=== PATIENT | male | born 1980 | race Caucasian/White ===

== ENCOUNTER 2019-11-24 17:00 | Emergency (ER) | payer SELFPAY ==
[2019-11-24] MEDS ORDERED: KETOROLAC 30 MG/ML INJ ONE (18:12)
--- NOTE | 2019-11-24 18:39 | EDPHYS ---
Physician Documentation [facility] Name: Elías Haq Age: 39 yrs Sex: Male : 1980 Arrival Date: 11/24/2019 Time: 17:03 Bed 24 Private MD: ED Physician Joey Pal HPI: 11/24 17:50 This 39 yrs old Male presents to ER via Ambulatory with complaints of Chest cp Pain From Injury. 17:50 The patient or guardian reports chest pain that is located primarily in the anterior cp aspect of right upper chest. Onset: The symptoms/episode began/occurred couple day days ago. The pain does not radiate. Associated signs and symptoms: Pertinent negatives: cough, diaphoresis, lower extremity pain, lower extremity swelling, recent travel, shortness of breath, syncope. Modifying factors: the symptoms are aggravated by moving and lifting right arm, pressing on right side of chest. 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 Patient reports pain became worse yesterday after working on shed. Denies direct trauma to area. Historical: - Allergies: 17:27 No Known Allergies; aa5 - PMHx: 17:27 None; aa5 - PSHx: 17:27 None; aa5 - Immunization history:: Flu vaccine is not up to date. - Coronavirus screen:: The patient has NOT traveled to [place], [place], or [place] in the past 14 days. The patient has NOT had contact with known/suspected case of Coronavirus?. - Social history:: Smoking status: Patient denies any tobacco usage or history of. - Ebola Screening: : No symptoms or risks identified at this time. ROS: 17:55 Cardiovascular: Positive for chest pain, of the anterior aspect of right upper chest, cp Negative for edema, palpitations. 17:55 Eyes: Negative for injury, pain, redness, and discharge. cp 17:55 Constitutional: Negative for chills, fever, poor PO intake. 17:55 ENT: Negative for drainage from ear(s), ear pain, sore throat, difficulty swallowing, difficulty handling secretions. 17:55 Neck: Negative for pain with movement, pain at rest, stiffness. 17:55 Respiratory: Negative for cough, shortness of breath, wheezing. 17:55 Abdomen/GI: Negative for abdominal pain, vomiting, diarrhea, constipation. 17:55 Back: Negative for radiated pain. 17:55 Neuro: Negative for headache, syncope, weakness. 17:55 All other systems are negative. Exam: 18:00 Constitutional: The patient appears in no acute distress, alert, awake, cp non-diaphoretic, non-toxic, well developed, well nourished. 18:00 Head/Face: Normocephalic, atraumatic. cp 18:00 Eyes: Periorbital structures: appear normal, Conjunctiva: normal, no exudate, no injection, Sclera: no appreciated abnormality, Lids and lashes: appear normal, bilaterally. 18:00 ENT: External ear(s): are unremarkable, Nose: is normal, Mouth: Lips: moist, Oral mucosa: pink and intact, moist, Posterior pharynx: is normal, airway is patent, no erythema, no exudate. 18:00 Chest/axilla: Inspection: normal, Palpation: crepitus, is not appreciated, tenderness, that is moderate, of the anterior aspect of right upper chest. 18:00 Cardiovascular: Rate: normal, Rhythm: regular, Heart sounds: murmur, not appreciated, Edema: is not appreciated, JVD: is not appreciated. 18:00 Respiratory: the patient does not display signs of respiratory distress, Respirations: cp normal, no use of accessory muscles, no retractions, no splinting, no tachypnea, labored breathing, is not present, Breath sounds: are clear throughout, no decreased breath sounds, no stridor, no wheezing. 18:00 Abdomen/GI: Inspection: abdomen appears normal, Palpation: abdomen is soft and non-tender, in all quadrants. 18:00 Back: pain, is absent, ROM is normal. 18:00 Skin: cellulitis, is not appreciated, no rash present. 18:00 Neuro: Orientation: to person, place \\T\\ time. Mentation: is normal, Motor: moves all fours, strength is normal. Vital Signs: 17:28 BP 138 / 99; Pulse 76; Resp 16 S; Temp 97.5(TE); Pulse Ox 100% on R/A; Weight 90.72 kg aa5 (R); Height 6 ft. 2 in. (187.96 cm) (R); Pain 4/10; 17:28 Body Mass Index 25.68 (90.72 kg, 187.96 cm) aa5 MDM: 17:42 Patient medically screened. cp 18:00 Differential diagnosis: Chest Wall Injury Pneumothorax Rib Fracture. cp 18:37 Data reviewed: vital signs, nurses notes, radiologic studies, plain films. cp 18:37 Test interpretation: by ED physician or midlevel provider: plain radiologic studies, cp chest xray negative for infiltrates or rib fractures. Counseling: I had a detailed discussion with the patient and/or guardian regarding: the historical points, exam findings, and any diagnostic results supporting the discharge/admit diagnosis, radiology results, to return to the emergency department if symptoms worsen or persist or if there are any questions or concerns that arise at home. 11/24 17:47 Order name: XRAY Chest Pa And Lat (2 Views); Complete Time: 19:07 cp 11/24 19:07 Interpretation: Report reviewed. cp Administered Medications: 18:10 Drug: TORadol 60 mg Route: IM; Site: left deltoid; ls4 18:40 Follow up: Response: No adverse reaction; Marked relief of symptoms; Pain is decreased ls4 Disposition: 11/25 02:46 Co-signature as Attending Physician, Joey Pal MD I agree with the assessment and kdr plan of care. Disposition: 11/24/19 18:38 Discharged to Home. Impression: Other chest pain. - Condition is Stable. - Discharge Instructions: Chest Wall Pain. - Prescriptions for Diclofenac Sodium 75 mg Oral Tablet, Delayed Release (E.C.) - take 1 tablet by ORAL route 2 times per day; 20 tablet. - Medication Reconciliation Form, Thank You Letter, Antibiotic Education, Prescription Opioid Use, Work release form form. - Follow up: Private Physician; When: 2 - 3 days; Reason: Worsening of condition. - Problem is new. - Symptoms have improved. Signatures: Dispatcher [employer] EDMS Joey Pal MD MD [facility] Melyssa Matthwe RN RN aa5 Pineda Cherry PA PA cp Molly Shin, RN RN ls4 Corrections: (The following items were deleted from the chart) 11/24 19:09 18:38 11/24/2019 18:38 Discharged to Home. Impression: Other chest pain. Condition is ls4 Stable. Forms are Medication Reconciliation Form, Thank You Letter, Antibiotic Education, Prescription Opioid Use. Follow up: Private Physician; When: 2 - 3 days; Reason: Worsening of condition. Problem is new. Symptoms have improved. cp
--- NOTE | 2019-11-24 18:39 | ER ---
Nurse's Notes [facility] Name: Elías Haq Age: 39 yrs Sex: Male : 1980 Arrival Date: 11/24/2019 Time: 17:03 Bed 24 Private MD: Diagnosis: Other chest pain Presentation: 11/24 17:26 Presenting complaint: Patient states: "I was in the car with my kids and one of them aa5 threw a cup so as I bent over to grab the cup and I heard a pop on the right side of my chest". Transition of care: patient was not received from another setting of care. Onset of symptoms was November 24, 2019. Risk Assessment: Do you want to hurt yourself or someone else? Patient reports no desire to harm self or others. Initial Sepsis Screen: Does the patient meet any 2 criteria? No. Patient's initial sepsis screen is negative. Does the patient have a suspected source of infection? No. Patient's initial sepsis screen is negative. Care prior to arrival: None. 17:26 Acuity: ESTRELLITA 4 aa5 17:26 Method Of Arrival: Ambulatory aa5 Triage Assessment: 17:33 General: Appears in no apparent distress. Behavior is calm, cooperative. ls4 Historical: - Allergies: 17:27 No Known Allergies; aa5 - PMHx: 17:27 None; aa5 - PSHx: 17:27 None; aa5 - Immunization history:: Flu vaccine is not up to date. - Coronavirus screen:: The patient has NOT traveled to [place], [place], or [place] in the past 14 days. The patient has NOT had contact with known/suspected case of Coronavirus?. - Social history:: Smoking status: Patient denies any tobacco usage or history of. - Ebola Screening: : No symptoms or risks identified at this time. Screenin:32 Abuse screen: Denies threats or abuse. Denies injuries from another. Nutritional ls4 screening: No deficits noted. Tuberculosis screening: No symptoms or risk factors identified. Fall Risk None identified. Assessment: 17:30 Pain: Complains of pain in anterior aspect of right upper chest Pain currently is 5 out ls4 of 10 on a pain scale. 17:30 General: Appears in no apparent distress. Neuro: No deficits noted. Cardiovascular: No ls4 deficits noted. Respiratory: No deficits noted. Derm: No deficits noted. Musculoskeletal: No deficits noted. Vital Signs: 17:28 BP 138 / 99; Pulse 76; Resp 16 S; Temp 97.5(TE); Pulse Ox 100% on R/A; Weight 90.72 kg aa5 (R); Height 6 ft. 2 in. (187.96 cm) (R); Pain 4/10; 17:28 Body Mass Index 25.68 (90.72 kg, 187.96 cm) aa5 ED Course: 17:03 Patient arrived in ED. ag5 17:27 Triage completed. aa5 17:27 Arm band placed on. aa5 17:30 Molly Shin, RN is Primary Nurse. ls4 17:32 Patient has correct armband on for positive identification. Bed in low position. Call ls4 light in reach. Side rails up X2. senior it recruiter on. Pulse ox on. NIBP on. 17:32 No provider procedures requiring assistance completed. ls4 17:34 Pineda Cherry PA is PHCP. cp 17:34 Joey Pal MD is Attending Physician. cp 17:57 XRAY Chest Pa And Lat (2 Views) In Process Unspecified. EDMS 19:40 Patient did not have IV access during this emergency room visit. ls4 Administered Medications: 18:10 Drug: TORadol 60 mg Route: IM; Site: left deltoid; ls4 18:40 Follow up: Response: No adverse reaction; Marked relief of symptoms; Pain is decreased ls4 Outcome: 18:38 Discharge ordered by MD. cp 19:09 Patient left the ED. ls4 23:05 Discharged to home ambulatory. ls4 23:05 Condition: stable 23:05 Discharge instructions given to patient, Instructed on discharge instructions, follow up and referral plans. medication usage, Demonstrated understanding of instructions, follow-up care, medications, Prescriptions given X 1. Signatures: Dispatcher [employer] EDIL Melyssa Matthew RN RN aa5 Pineda Cherry PA PA cp Molly Shin, RN RN ls4 Adrianna Rubin 5
--- NOTE | 2019-11-24 19:01 | RAD REPORT ---
EXAM DESCRIPTION: RAD - Chest Pa And Lat (2 Views) - 11/24/2019 5:59 pm CLINICAL HISTORY: right side chest pain COMPARISON: No comparisons TECHNIQUE: Frontal and lateral views of the chest were obtained. FINDINGS: The lungs are clear. Heart size is normal and central vasculature is within normal limit s. No pleural effusion or pneumothorax seen. No acute bony finding noted. No aortic abnormality. IMPRESSION: No acute cardiopulmonary process. Ongoing concerns for possible rib fracture could be addressed with rib series.
[2019-11-24 19:20] VITALS: BP 138/99; TEMP 97.5; O2SAT 100
== END 2019-11-24 19:09 | disposition home or self-care (01) ==
LOC: ER 17:00
DX: R07.89 Other chest pain (principal)
CPT/HCPCS: 71046; 96372; 99284

== ENCOUNTER 2021-07-12 17:29 | Inpatient (IN) | payer SELFPAY ==
[2021-07-12] MEDS ORDERED: NA CHLORIDE 0.9% 1,000 ML ONE ×2 (18:29→20:00)
[2021-07-12] MEDS ORDERED: NITROGLYCERIN 0.4 MG/TAB SL ONE (18:29)
[2021-07-12] MEDS ORDERED: ASPIRIN 81 MG CHEWABLE TABLET ONE (18:29)
[2021-07-12 18:31] LABS: Absolute Lymphocytes (CBC) 0.7 K/uL (0.7-4.9); Basophils % 0.6 % (0-1.3); Hematocrit 30.5 % (39.6-49.0); MPV 7.7 fL (7.6-11.3); RBC Red Blood Cell Count 3.62 M/uL (4.33-5.43)
[2021-07-12 18:32] LABS: Protime INR 1.1
[2021-07-12 18:49] LABS: ALT/SGPT 53 U/L (12-78); AST/SGOT 63 U/L (15-37); Albumin 4.1 g/dL (3.4-5.0); Alkaline Phosphatase 48 U/L (45-117); BUN Blood Urea Nitrogen 22 mg/dL (7-18); Bicarbonate 28 mmol/L (21-32); Bilirubin Direct 0.2 mg/dL (0-0.2); Bilirubin Total 0.7 mg/dL (0.2-1.0); Glucose Level 92 mg/dL (74-106); Magnesium 2.3 mg/dL (1.8-2.4); NT PRO-BNP 74 pg/mL (<125); Potassium 3.3 mmol/L (3.5-5.1); Protein, Total 7.6 g/dL (6.4-8.2); Sodium Level 139 mmol/L (136-145); Troponin (Emerg Dept Use Only) < 0.02 ng/mL (0.0-0.045)
--- NOTE | 2021-07-12 19:55 | RAD REPORT ---
EXAM DESCRIPTION: RAD - Chest Single View - 07/12/2021 7:18 pm CLINICAL HISTORY: CHEST PAIN COMPARISON: Chest Pa And Lat (2 Views) dated 11/24/2019 FINDINGS: Lines: None. Lungs: New scattered ill-defined opacities in the left lung. Pleural: No significant pleural effusions or pneumothorax. Cardiac: The heart size is within normal limits. Bones: No acute fractures. Other: IMPRESSION: New scattered ill-defined opacities in the left lung could represent pneumonia.
[2021-07-12] MEDS ORDERED: POTASSIUM 25 MEQ EFFERV TAB ONE (20:00)
[2021-07-12 20:01] LABS: White Blood Cell Scan OK (OK)
[2021-07-12 20:02] LABS: Blood Morphology Comment NOTED (NOT SEEN); Ovalocytes SLIGHT; Platelet Estimate ADEQ; Poikilocytosis SLIGHT
[2021-07-12] MEDS ORDERED: KETOROLAC 30 MG/ML INJ ONE (20:04)
[2021-07-12] MEDS ORDERED: PANTOPRAZOLE 40 MG INJ ONE (20:04)
--- NOTE | 2021-07-12 20:41 | ER ---
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 Has sick kids at home with cough/congestion. No known fever. EMS states: 20 G L AC, VSS, normal sinus on monitor. Coronavirus screen: Vaccine status: Patient reports being unvaccinated. Client denies travel out of the [place] in the last 14 days. difficulty breathing, fatigue, Client presents with at least one sign or symptom that may indicate coronavirus-19. Standard/surgical mask placed on the client. Ebola Screen: Patient denies travel to an Ebola-affected area in the 21 days before illness onset. Initial Sepsis Screen: Does the patient meet any 2 criteria? No. Patient's initial sepsis screen is negative. Does the patient have a suspected source of infection? No. Patient's initial sepsis screen is negative. Risk Assessment: Do you want to hurt yourself or someone else? Patient reports no desire to harm self or others. Onset of symptoms was July 12, 2021. 17:46 Method Of Arrival: EMS ll1 17:46 Acuity: ESTRELLITA 3 ll1 20:35 Care prior to arrival: IV initiated. 20 GA, in the left antecubital area. lp1 Historical: - Allergies: 17:41 No Known Allergies; ll1 - PMHx: 17:41 None; ll1 - PSHx: 17:41 None; ll1 - Immunization history:: Client reports having NOT received the Covid vaccine. Flu vaccine is up to date. - Social history:: Smoking status: Patient/guardian denies using tobacco, the patient reports quitting approximately 25 years ago. Screenin:49 Abuse screen: Denies threats or abuse. Nutritional screening: No deficits noted. ll1 Tuberculosis screening: No symptoms or risk factors identified. Fall Risk IV access (20 points). Gait- Weak (10 pts.). Total Duran Fall Scale indicates Low Risk Score (25-44 pts). Fall prevention measures have been instituted. Side Rails Up X 2 Frequent Obs/Assesments occuring As available Patient and Family Educated on Fall Prevention Program and strategies. Assessment: 17:50 General: Appears ill, Behavior is calm, cooperative, appropriate for age. Pain: ll1 Complains of pain in L chest Pain does not radiate. Quality of pain is described as aching, Pain began 1 hour ago. Aggravated by deep breathing. Neuro: Level of Consciousness is awake, alert, obeys commands, Oriented to person, place, time, situation, Appropriate for age [employer] Mission Systems Superintendent are equal bilaterally Moves all extremities. Full function Speech is normal, Facial symmetry appears normal, Reports dizziness, a syncopal episode. Cardiovascular: Reports chest pain, diaphoresis, fatigue, lightheadedness, syncope, Heart tones S1 S2 Capillary refill < 3 seconds Clubbing of nail beds is absent JVD is absent Patient's skin is warm and dry. Chest pain. Respiratory: Airway is patent Trachea midline Respiratory effort is even, unlabored, Respiratory pattern is regular, symmetrical, Breath sounds are clear bilaterally. 20:30 Reassessment: No changes from previously documented assessment. Patient and/or family lp1 updated on plan of care and expected duration. Pain level reassessed. Patient is alert, oriented x 3, equal unlabored respirations, skin warm/dry/pink. Pt resting quietly in bed. No distress noted. Lights off. Warm blanket given. 20:38 Reassessment: pt reports a missing gun and "load of money", called [facility] Andrade and hemal Eller RN to verify if pt had any belongings with him, nurses were unaware of any personal belongings left with him from EMS, I called [facility] verified belongings were left in the back of his SUV, between a cooler and sub woofer and picked up vehicle from the location EMS picked pt up. 22:15 Reassessment: KIMBERLY Macdonald at bedside to discuss plan of care with patient. lp1 23:23 Reassessment: Attempted report to 205. RN unable to take and will call back when lp1 available. Vital Signs: 17:46 BP 156 / 102; Pulse 73; Resp 17; Temp 97.5; Pulse Ox 96% on R/A; Weight 95.25 kg; ll1 Height 6 ft. 2 in. (187.96 cm); Pain 4/10; 18:19 BP 144 / 100; ll1 19:53 BP 132 / 95; Pulse 73; Resp 18; Pulse Ox 97% on R/A; lp1 22:07 BP 133 / 88; Pulse 81; Resp 18; Pulse Ox 94% on R/A; lp1 23:00 BP 137 / 94; Pulse 82; Resp 18; Pulse Ox 94% on R/A; lp1 17:46 Body Mass Index 26.96 (95.25 kg, 187.96 cm) ll1 ED Course: 17:37 Patient arrived in ED. am2 17:39 Pineda Cherry PA is PHCP. cp 17:39 Jag Riley MD is Attending Physician. cp 17:41 Rafita Ramires, CHIARA is Primary Nurse. ll1 17:41 Arm band placed on Patient placed in an exam room, on a stretcher. ll1 17:49 Triage completed. ll1 17:49 Patient has correct armband on for positive identification. Bed in low position. Call ll1 light in reach. Side rails up X 1. Pulse ox on. NIBP on. 17:49 Maintain EMS IV. Dressing intact. Good blood return noted. Site clean \\T\\ dry. Gauge \\T\\ ll 1 site: 20 G L AC. Patient maintains SpO2 saturation greater than 95% on room air. 19:18 XRAY Chest (1 view) In Process Unspecified. EDMS 20:40 Cale Smith PA is Hospitalizing Provider. cp 21:39 Primary Nurse role handed off by Rafita Ramires, CHIARA tt3 22:07 Tiara Thomas, CHIARA is Primary Nurse. lp1 22:58 Blood Culture Adult (2): Verbal order per KIMBERLY Macdonald Sent. lp1 23:01 Resting quietly. Patient requests food. lp1 23:04 No provider procedures requiring assistance completed. Patient admitted, IV remains in lp1 place. Administered Medications: 18:17 Drug: NS 0.9% 1000 ml Route: IV; Rate: 1 bolus; Site: left antecubital; ll1 19:25 Follow up: IV Status: Completed infusion; IV Intake: 1000ml lp1 18:17 Drug: Aspirin Chewable Tablet 324 mg Route: PO; ll1 19:25 Follow up: Response: No adverse reaction lp1 18:17 Not Given (Patient Refused): Nitroglycerin 0.4 mg Sublingual once ll1 19:39 Drug: NS 0.9% 1000 ml Route: IV; Rate: 1000 ml; Site: left antecubital; lp1 21:00 Follow up: IV Status: Completed infusion; IV Intake: 1000ml lp1 19:49 CANCELLED (Duplicate Order): NS 0.9% 1000 ml IV at 1 bolus Per protocol; 1000 mL bolus lp1 19:51 Drug: Ketorolac 15 mg Route: IVP; Site: left antecubital; lp1 20:30 Follow up: Response: No adverse reaction lp1 19:52 Drug: ProTONIX (pantoprazole) 40 mg Route: IVP; Site: left antecubital; lp1 22:26 Follow up: Response: No adverse reaction lp1 19:56 Drug: Potassium Effervescent Tablet 50 mEq Route: PO; lp1 22:27 Follow up: Response: No adverse reaction lp1 22:58 Drug: Rocephin (cefTRIAXone) 1 grams Route: IV; Rate: calculated rate; Site: left lp1 antecubital; 07/13 00:04 Follow up: IV Status: Completed infusion; IV Intake: 10ml lp1 07/12 22:58 Drug: Zithromax (azithromycin) 500 mg Route: IVPB; Infused Over: 1 hrs; Site: left lp1 antecubital; 07/13 00:04 Follow up: IV Status: Completed infusion; IV Intake: 250ml lp1 07/12 22:59 Not Given (Patient Refused; Pt denies any pain at this time): morphine 2 mg IVP once; lp1 (PAIN>8) RASS on ADMN: Combtv4, Very Agttd3, Agttd2, Rstlss1, AlertClm0, Drwsy-1, LtSdtn-2, ModSdtn-3, DpSdtn-4, UnArsble-5 x2 Intake: 19:25 IV: 1000ml; Total: 1000ml. lp1 21:00 IV: 1000ml; Total: 2000ml. lp1 07/13 00:04 IV: 10ml; Total: 2010ml. lp1 00:04 IV: 250ml; Total: 2260ml. lp1 Outcome: 07/12 20:41 Decision to Hospitalize by Provider. cp 23:04 Condition: stable lp1 23:04 Instructed on the need for admit. 07/13 00:03 Admitted to Med/surg room 205, with chart, Report called to CHIARA Fish lp1 00:17 Patient left the ED. lp1 Signatures: Dispatcher [employer] EDJackson Billings RN RN Tiara Mike RN RN lp1 Pineda Cherry PA PA cp Moreno, Amanda am2 Rafita Ramires RN RN ll1 Delroy Watts tt3
--- NOTE | 2021-07-12 20:41 | EDPHYS ---
Physician Documentation [facility] Name: Elías Haq Age: 41 yrs Sex: Male : 1980 Arrival Date: 07/12/2021 Time: 17:37 Bed 17 Private MD: ED Physician Jag Riley HPI: 07/12 18:00 This 41 yrs old Male presents to ER via EMS with complaints of Chest Pain. cp 18:00 Onset: The symptoms/episode began/occurred today, 2 hour(s) ago. cp 18:00 The patient or guardian reports chest pain that is located primarily in the substernal cp area. 18:00 The chest pain is described as sharp. Duration: The patient or guardian reports a cp single episode, that is still ongoing, and unchanged. EMS care prior to arrival includes: IV fluids. Patient reports he was standing in line when chest pain worsened, he became lightheaded and passed out briefly after sitting down. Historical: - Allergies: 17:41 No Known Allergies; ll1 - PMHx: 17:41 None; ll1 - PSHx: 17:41 None; ll1 - Immunization history:: Client reports having NOT received the Covid vaccine. Flu vaccine is up to date. - Social history:: Smoking status: Patient/guardian denies using tobacco, the patient reports quitting approximately 25 years ago. ROS: 18:05 Constitutional: Negative for body aches, chills, fever, poor PO intake. cp 18:05 Eyes: Negative for injury, pain, redness, and discharge. cp 18:05 ENT: Negative for ear pain, sore throat, difficulty swallowing, difficulty handling secretions. 18:05 Neck: Negative for pain with movement, pain at rest, stiffness. 18:05 Cardiovascular: Positive for chest pain, Negative for edema, palpitations. 18:05 Respiratory: Positive for cough, with no reported sputum, Negative for shortness of breath, wheezing. 18:05 Abdomen/GI: Negative for abdominal pain, nausea, vomiting, and diarrhea. 18:05 Back: Negative for injury or acute deformity. 18:05 Neuro: Positive for syncope, Negative for altered mental status, weakness. 18:05 All other systems are negative. Exam: 18:00 ECG was reviewed by the Attending Physician. cp 18:10 Constitutional: The patient appears in no acute distress, alert, awake, non-toxic, well cp developed, well nourished. 18:10 Head/Face: Normocephalic, atraumatic. cp 18:10 Eyes: Periorbital structures: appear normal, Pupils: equal, round, and reactive to light and accomodation, Extraocular movements: intact throughout, Conjunctiva: normal, Sclera: no appreciated abnormality, Lids and lashes: appear normal, bilaterally. 18:10 ENT: External ear(s): are unremarkable, Nose: is normal, Mouth: Lips: moist, Oral mucosa: pink and intact, moist, Posterior pharynx: Airway: no evidence of obstruction, patent. 18:10 Neck: ROM/movement: is normal, is supple, without pain, no range of motions limitations. 18:10 Chest/axilla: Inspection: normal. 18:10 Cardiovascular: Rate: normal, Rhythm: regular, Pulses: Pulses are 2+ in right radial artery and left radial artery. Heart sounds: murmur, not appreciated, Edema: is not appreciated, JVD: is not appreciated. 18:10 Respiratory: the patient does not display signs of respiratory distress, Respirations: normal, no use of accessory muscles, no retractions, labored breathing, is not present, Breath sounds: are clear throughout, no decreased breath sounds, no stridor, no wheezing. 18:10 Abdomen/GI: Inspection: abdomen appears normal, Palpation: abdomen is soft and non-tender, in all quadrants. 18:10 Back: pain, is absent, ROM is normal. 18:10 Neuro: Orientation: to person, place \T\ time. Mentation: is normal, Cerebellar function: is grossly normal, Motor: moves all fours, strength is normal, Sensation: is normal. Vital Signs: 17:46 BP 156 / 102; Pulse 73; Resp 17; Temp 97.5; Pulse Ox 96% on R/A; Weight 95.25 kg; ll1 Height 6 ft. 2 in. (187.96 cm); Pain 4/10; 18:19 BP 144 / 100; ll1 19:53 BP 132 / 95; Pulse 73; Resp 18; Pulse Ox 97% on R/A; lp1 22:07 BP 133 / 88; Pulse 81; Resp 18; Pulse Ox 94% on R/A; lp1 23:00 BP 137 / 94; Pulse 82; Resp 18; Pulse Ox 94% on R/A; lp1 17:46 Body Mass Index 26.96 (95.25 kg, 187.96 cm) ll1 MDM: 17:52 Patient medically screened. cp 20:40 Physician consultation: Cale HARRIS was called at 20:40, was contacted at 20:40, cp regarding admission, to the telemetry unit. patient's condition. 20:45 Data reviewed: vital signs, nurses notes, lab test result(s), EKG, radiologic studies, cp plain films. 20:45 The patient was given aspirin in the Emergency Department. Test interpretation: by ED cp physician or midlevel provider: ECG, plain radiologic studies. Counseling: I had a detailed discussion with the patient and/or guardian regarding: the historical points, exam findings, and any diagnostic results supporting the discharge/admit diagnosis, lab results, radiology results, the need for further work-up and treatment in the hospital. Response to treatment: the patient's symptoms have mildly improved after treatment. 07/12 18:01 Order name: Basic Metabolic Panel 07/12 18:01 Order name: CBC with Diff 07/12 18:01 Order name: LFT's 07/12 18:01 Order name: Magnesium 07/12 18:01 Order name: NT PRO-BNP; Complete Time: 19:20 07/12 18:01 Order name: PT-INR; Complete Time: 19:20 07/12 18:01 Order name: Troponin (emerg Dept Use Only); Complete Time: 19:20 07/12 18:01 Order name: UDS 07/12 18:01 Order name: Basic Metabolic Panel; Complete Time: 19:20 EDOR 07/12 19:20 Interpretation: Normal except: K 3.3; BUN 22; CRE 1.63; GFR 46. 07/12 18:01 Order name: CBC with Automated Diff; Complete Time: 20:34 EDOR 07/12 19:34 Interpretation: Normal except: RBC 3.62; HGB 10.1; HCT 30.5; RDW 15.4; PATRICK% 87.1; LYM% cp 7.0; NEUT A 9.3. 07/12 18:01 Order name: Liver (Hepatic) Function; Complete Time: 19:20 EDOR 07/12 18:01 Order name: Magnesium; Complete Time: 19:20 EDMS 07/12 20:01 Order name: CBC Smear Scan; Complete Time: 20:34 EDMS 07/12 17:45 Order name: EKG; Complete Time: 17:45 cp 07/12 18:01 Order name: XRAY Chest (1 view); Complete Time: 20:02 cp 07/12 21:08 Order name: SARS-COV-2 RT PCR; Complete Time: 21:28 EDMS 07/12 22:26 Order name: Blood Culture Adult (2): Verbal order per KIMBERLY Macdonald lp1 07/12 17:45 Order name: EKG - Nurse/Tech; Complete Time: 18:02 cp 07/12 18:01 Order name: Cardiac monitoring; Complete Time: 18:02 cp 07/12 18:01 Order name: IV Saline Lock; Complete Time: 18:02 cp 07/12 18:01 Order name: Labs collected and sent; Complete Time: 18:02 cp 07/12 18:01 Order name: O2 Per Protocol; Complete Time: 18:02 cp 07/12 18:01 Order name: O2 Sat Monitoring; Complete Time: 18:02 cp EC:00 Rate is 73 beats/min. Rhythm is regular. DC interval is normal. QRS interval is cp prolonged at 106 msec. QT interval is normal. T waves are Inverted in lead aVR. Interpreted by me. Reviewed by me. Administered Medications: 18:17 Drug: NS 0.9% 1000 ml Route: IV; Rate: 1 bolus; Site: left antecubital; ll1 19:25 Follow up: IV Status: Completed infusion; IV Intake: 1000ml lp1 18:17 Drug: Aspirin Chewable Tablet 324 mg Route: PO; ll1 19:25 Follow up: Response: No adverse reaction lp1 18:17 Not Given (Patient Refused): Nitroglycerin 0.4 mg Sublingual once ll1 19:39 Drug: NS 0.9% 1000 ml Route: IV; Rate: 1000 ml; Site: left antecubital; lp1 21:00 Follow up: IV Status: Completed infusion; IV Intake: 1000ml lp1 19:49 CANCELLED (Duplicate Order): NS 0.9% 1000 ml IV at 1 bolus Per protocol; 1000 mL bolus lp1 19:51 Drug: Ketorolac 15 mg Route: IVP; Site: left antecubital; lp1 20:30 Follow up: Response: No adverse reaction lp1 19:52 Drug: ProTONIX (pantoprazole) 40 mg Route: IVP; Site: left antecubital; lp1 22:26 Follow up: Response: No adverse reaction lp1 19:56 Drug: Potassium Effervescent Tablet 50 mEq Route: PO; lp1 22:27 Follow up: Response: No adverse reaction lp1 22:58 Drug: Rocephin (cefTRIAXone) 1 grams Route: IV; Rate: calculated rate; Site: left lp1 antecubital; 07/13 00:04 Follow up: IV Status: Completed infusion; IV Intake: 10ml lp1 07/12 22:58 Drug: Zithromax (azithromycin) 500 mg Route: IVPB; Infused Over: 1 hrs; Site: left lp1 antecubital; 07/13 00:04 Follow up: IV Status: Completed infusion; IV Intake: 250ml lp1 07/12 22:59 Not Given (Patient Refused; Pt denies any pain at this time): morphine 2 mg IVP once; lp1 (PAIN>8) RASS on ADMN: Combtv4, Very Agttd3, Agttd2, Rstlss1, AlertClm0, Drwsy-1, LtSdtn-2, ModSdtn-3, DpSdtn-4, UnArsble-5 x2 Disposition: 07/13 07:46 Co-signature as Attending Physician, Jag Riley MD I agree with the assessment and rn plan of care. Attestation: The patient's history, exam findings, diagnostics, and a summary of any interventions or procedures was reviewed in detail with Pineda HARRIS. Disposition Summary: 07/12/21 20:41 Hospitalization Ordered Hospitalization Status: Observation cp Provider: Cale Smith cp Location: Telemetry/MedSurg (observation) cp Condition: Stable cp Problem: new cp Symptoms: have improved cp Bed/Room Type: Standard cp Room Assignment: 205(07/12/21 21:45) mw Diagnosis - Chest pain, unspecified cp - Syncope Near cp - Other pneumonia, unspecified organism cp Forms: - Medication Reconciliation Form cp - SBAR form cp Signatures: Dispatcher [employer] Arabella Kilpatrick RN RN mw Nieto, Roman, MD MD rn Pena, Laura, RN RN lp1 Pineda Cherry PA PA cp Lewis, Lynsay RN RN ll1 Corrections: (The following items were deleted from the chart) 07/12 19:34 19:31 Angio Aorta For Dissection+CT.RAD.BRZ ordered. EDMS EDMS 19:44 18:02 CORONAVIRUS+MR.LAB.BRZ ordered. EDMS EDMS 19:49 19:30 NS 0.9% 1000 ml IV at 1 bolus Per protocol; 1000 mL bolus ordered. cp lp1 21:45 20:41 cp mw
[2021-07-12] MEDS ORDERED: CEFTRIAXONE 1000 MG/VIAL ONE (22:41)
[2021-07-12] MEDS ORDERED: AZITHROMYCIN 500 MG INJ IVPB ONE (22:42)
[2021-07-12] MEDS ORDERED: NA CHLORIDE 0.9% 250 ML ONE (22:43)
[2021-07-12] MEDS ORDERED: CEFTRIAXONE/SWI 1gm 1 GM/10 ML SYR ONE (22:46)
--- NOTE | 2021-07-12 23:02 | P.HP ---
Certification for Inpatient Patient admitted to: Observation With expected LOS: <2 Midnights Patient will require the following post-hospital care: None Practitioner: I am a practitioner with admitting privileges, knowledge of patient current condition, hospital course, and medical plan of care. Services: Services provided to patient in accordance with Admission requirements found in Title 42 Section 412.3 of the Code of Federal Regulations Patient History Date of Service: 07/12/21 Reason for admission: chest pain History of Present Illness: Mr. Haq is a 41 yo M who presents with 10/10 left sided dull chest pain radiating down his left arm beginning today. He describes episodes of chest pain in the past. Reports extreme stress and anxiety today due to being behind on rent. Reports diaphoresis, clamminess and nausea with the pain. Describe episode of near syncope as well and says he has had similar episodes like this in the past as well that usually occur when he is working outside. K 3.3. BUN 22, Cr 1.63, GFR 46. Initial troponin within normal limits. CXR with incidental finding of pneumonia, says his kids have been sick recently. - Past Medical/Surgical History Past Medical History: Patient denies medical history Past Surgical History: Patient denies surgical history - Family History Family History: Reviewed- Non-Contributory - Social History Smoking Status: Never smoker Alcohol use: No CD- Drugs: No Caffeine use: Yes Place of Residence: Home Review of Systems 10-point ROS is otherwise unremarkable General: Sweats Respiratory: Cough Cardiovascular: Chest Pain, Light Headedness Gastrointestinal: Nausea Physical Examination - Physical Exam General: Alert, In no apparent distress HEENT: Atraumatic, PERRLA, Mucous membr. moist/pink, EOMI, Sclerae nonicteric Neck: Supple, 2+ carotid pulse no bruit, No LAD, Without JVD or thyroid abnormality Respiratory: Clear to auscultation bilaterally, Normal air movement Cardiovascular: Regular rate/rhythm, Normal S1 S2 Gastrointestinal: Normal bowel sounds, No tenderness Musculoskeletal: No tenderness Integumentary: No rashes Neurological: Normal gait, Normal speech, Normal strength at 5/5 x4 extr, Normal tone, Normal affect Lymphatics: No axilla or inguinal lymphadenopathy - Studies Laboratory Data (last 24 hrs) 07/12/21 18:10: PT 12.7 H, INR 1.10 07/12/21 18:10: WBC 10.70, Hgb 10.1 L, Hct 30.5 L, Plt Count 205 07/12/21 18:10: Sodium 139, Potassium 3.3 L, BUN 22 H, Creatinine 1.63 H, Glucose 92, Magnesium 2.3, Total Bilirubin 0.7, AST 63 H, ALT 53, Alkaline Phosphatase 48 Assessment and Plan - Problems (Diagnosis) (1) Chest pain Current Visit: Yes Status: Acute Qualifiers: Chest pain type: unspecified Qualified Code(s): R07.9 - Chest pain, unspecified (2) Pneumonia Current Visit: Yes Status: Acute Qualifiers: Pneumonia type: due to unspecified organism Laterality: unspecified laterality Lung location: lower lobe of lung Qualified Code(s): J18.9 - Pneumonia, unspecified organism (3) KANDY (acute kidney injury) Current Visit: Yes Status: Acute - Plan on telemetry, trend troponins, repeat EKG cardiology consulted orthostatic VS in the AM, ECHO pending continue IVF hydration, continue antibiotics, blood and sputum cultures pending potassium replacement BG checks, A1c pending iron, ferritin, b12, folate pending DVT ppx Discharge Plan: Home Plan to discharge in: 24 Hours - Advance Directives Does patient have a Living Will: No Does patient have a Durable POA for Healthcare: No - Code Status/Comfort Care Code Status Assessed: Yes (full code ) Critical Care: No Time Spent Managing Pts Care (In Minutes): 70
[2021-07-13 00:27] VITALS: BMI 26.3
[2021-07-13] MEDS ORDERED: BENZONATATE 100 MG CAP PO PRN (00:57)
[2021-07-13] MEDS ORDERED: HYDRALAZINE HCL 20 MG/ML VIAL IV PRN (00:57)
[2021-07-13] MEDS ORDERED: MORPHINE 2 MG/ML SYR IV PRN (00:57)
[2021-07-13] MEDS ORDERED: ONDANSETRON 4 MG/2 ML VIAL IV PRN (00:57)
[2021-07-13] MEDS ORDERED: ACETAMINOPHEN 500 MG TAB PO PRN (00:57)
[2021-07-13] MEDS ORDERED: NITROGLYCERIN 0.4 MG/TAB SL PRN (00:57)
[2021-07-13] MEDS: NA CHLORIDE 0.9% 1,000 ML IV SCH ×2 (00:57→10:57)
[2021-07-13 02:36] LABS: Absolute Lymphocytes (CBC) 0.6 K/uL (0.7-4.9); Basophils % 0.5 % (0-1.3); Lymphocytes % 6.6 % (15.3-44.8); MPV 7.8 fL (7.6-11.3); RBC Red Blood Cell Count 3.44 M/uL (4.33-5.43)
[2021-07-13 03:22] LABS: ALT/SGPT 44 U/L (12-78); AST/SGOT 55 U/L (15-37); Albumin 3.7 g/dL (3.4-5.0); Alkaline Phosphatase 44 U/L (45-117); BUN Blood Urea Nitrogen 19 mg/dL (7-18); Bicarbonate 27 mmol/L (21-32); Bilirubin Total 0.5 mg/dL (0.2-1.0); Ferritin 141.4 ng/mL (26-388); Folic Acid, (Folate) 6.3 ng/mL (3.1-17.5); Glucose Level 103 mg/dL (74-106); HDL Cholesterol 68 mg/dL (40-60); LDL Cholesterol, Calculated 121 (<130); NT PRO-BNP 98 pg/mL (<125); Phosphorus 2.6 mg/dL (2.5-4.9); Potassium 3.9 mmol/L (3.5-5.1); Protein, Total 6.8 g/dL (6.4-8.2); Sodium Level 138 mmol/L (136-145); Transferrin 196 mg/dL (200-360); Troponin I < 0.02 ng/mL (0.0-0.045)
[2021-07-13 05:55] LABS: Barbiturates NEGATIVE (NEGATIVE); Benzodiazepines NEGATIVE (NEGATIVE); Cocaine NEGATIVE (NEGATIVE); METHAMPHETAM POSITIVE (NEGATIVE); Methadone NEGATIVE (NEGATIVE); Opiates NEGATIVE (NEGATIVE); Phencyclidine NEGATIVE (NEGATIVE); THC Cannibis POSITIVE (NEGATIVE)
[2021-07-13] MEDS ORDERED: METOPROLOL TAR 25 MG TAB PO SCH (06:00)
[2021-07-13] MEDS ORDERED: ENOXAPARIN 40 MG/0.4 ML SQ SCH (09:00)
[2021-07-13] MEDS ORDERED: AZITHROMYCIN 250 MG TAB PO ONE (09:00)
[2021-07-13] MEDS ORDERED: ASPIRIN EC 81 MG TAB PO SCH (09:00)
--- NOTE | 2021-07-13 09:54 | P.DS ---
Admission Date: 07/13/21 Discharge Date: 07/13/21 Disposition: ROUTINE DISCHARGE Discharge Condition: GOOD Reason for Admission: chest pain - Problems (1) KANDY (acute kidney injury) Current Visit: Yes Status: Acute (2) Chest pain Current Visit: Yes Status: Acute Qualifiers: Chest pain type: unspecified Qualified Code(s): R07.9 - Chest pain, unspecified (3) Pneumonia Current Visit: Yes Status: Acute Qualifiers: Pneumonia type: due to unspecified organism Laterality: unspecified laterality Lung location: lower lobe of lung Qualified Code(s): J18.9 - Pneumonia, unspecified organism Brief History of Present Illness: Patient presented with chest pain. Possible pneumonia. He had a elevated creatine. Curb 65 score was 1. 3.2% mortality. He had a negative troponin. Hospital Course: Patient is doing much better this morning. Had fluids and zithromax. He had 3 negative troponins. We can try for an outpatient stress test. However he may do well off the amphetamines. No beta blockers for that reason. Labetolol if an absolute. Vital Signs/Physical Exam: Temp Pulse Resp BP Pulse Ox 98.2 F 87 22 H 144/80 H 90 L 07/13/21 08:00 07/13/21 08:00 07/13/21 08:00 07/13/21 08:00 07/13/21 08:00 General: Alert, In no apparent distress HEENT: Atraumatic, PERRLA, EOMI Neck: Supple, JVD not distended Respiratory: Clear to auscultation bilaterally, Normal air movement Cardiovascular: Regular rate/rhythm, Normal S1 S2 Gastrointestinal: Normal bowel sounds, No tenderness Musculoskeletal: No tenderness Integumentary: No rashes Neurological: Normal speech, Normal tone, Normal affect Lymphatics: No axilla or inguinal lymphadenopathy Laboratory Data at Discharge: WBC 9.60 K/uL (4.3-10.9) 07/13/21 02:21 Hgb 9.6 g/dL (13.6-17.9) L 07/13/21 02:21 Hct 29.0 % (39.6-49.0) L 07/13/21 02:21 Plt Count 199 K/uL (152-406) 07/13/21 02:21 PT 12.7 SECONDS (9.5-12.5) H 07/12/21 18:10 INR 1.10 07/12/21 18:10 Sodium 138 mmol/L (136-145) 07/13/21 02:21 Potassium 3.9 mmol/L (3.5-5.1) 07/13/21 02:21 BUN 19 mg/dL (7-18) H 07/13/21 02:21 Creatinine 1.39 mg/dL (0.55-1.3) H 07/13/21 02:21 Glucose 103 mg/dL (74-106) 07/13/21 02:21 Phosphorus 2.6 mg/dL (2.5-4.9) 07/13/21 02:21 Magnesium 2.0 mg/dL (1.8-2.4) 07/13/21 02:21 Total Bilirubin 0.5 mg/dL (0.2-1.0) 07/13/21 02:21 AST 55 U/L (15-37) H 07/13/21 02:21 ALT 44 U/L (12-78) 07/13/21 02:21 Alkaline Phosphatase 44 U/L (45-117) L 07/13/21 02:21 Troponin I < 0.02 ng/mL (0.0-0.045) 07/13/21 02:21 Troponin I < 0.02 ng/mL (0.0-0.045) 07/13/21 02:21 Triglycerides 126 mg/dL (<150) 07/13/21 02:21 Cholesterol 214 mg/dL (<200) H 07/13/21 02:21 HDL Cholesterol 68 mg/dL (40-60) H 07/13/21 02:21 Cholesterol/HDL Ratio 3.15 07/13/21 02:21 Home Medications: Aspirin [Aspirin EC 81 MG] 81 mg PO DAILY 30 Days #30 tablet. 07/13/21 Azithromycin [Zithromax] 500 mg PO DAILY 7 Days #7 tablet 07/13/21 Lisinopril [Zestril] 10 mg PO DAILY 30 Days #30 tablet 07/13/21 New Medications: Aspirin [Aspirin EC 81 MG] 81 mg PO DAILY 30 Days #30 tablet Lisinopril [Zestril] 10 mg PO DAILY 30 Days #30 tablet Azithromycin [Zithromax] 500 mg PO DAILY 7 Days #7 tablet Diet: Regular Activity: Ad sunny Followup: Watson Torres MD [ACTIVE - CAN ADMIT] - 1-2 Weeks Jag Benjamin MD [ACTIVE - CAN ADMIT] - 1-2 Weeks Time spent managing pt's care (in minutes): 30
[2021-07-13] MEDS ORDERED: ACETAMIN/CAFFEINE/BUTALB TAB PO PRN (10:03)
[2021-07-13 11:36] VITALS: O2SAT 95
[2021-07-13 14:08] VITALS: BP 136/79; TEMP 97.1
[2021-07-13] MEDS ORDERED: ATORVASTATIN 40 MG TAB PO SCH (21:00)
[2021-07-14] MEDS ORDERED: AZITHROMYCIN 250 MG TAB PO SCH (09:00)
== END 2021-07-13 13:12 | disposition home or self-care (01) | DRG 194 ==
LOC: ER 17:29 → 2ND 22:20 → OBSVTOIN 07-13 09:01
PROVIDERS: ADMIT Internal Medicine; ATTEND Internal Medicine
DX: J18.9 Pneumonia, unspecified organism (principal); N17.9 Acute kidney failure, unspecified; R07.9 Chest pain, unspecified; Z20.822 Contact with and (suspected) exposure to COVID-19
CPT/HCPCS: 36415; 71045; 80048; 80053; 80061; 80076; 80307; 82607; 82728; 82746; 82947; 83036; 83540; 83735; 83880; 84100; 84439; 84443; 84466; 84484; 85025; 85610; 87040; 87070; 87205; 93005; 94760; 96361; 96365; 96368; 96375; 99285; C9113; G0378; J0456; J0696; J1650; J7030; J7050; U0003